=== PATIENT | female | born 1940 | race Caucasian/White ===

== ENCOUNTER 2023-09-26 11:50 | Day surgery (SDC) | payer MEDICARE, BC ==
[~2023-09-26 11:50] MED LIST: Cefuroxime 10 MG/ML SYRINGE EYERT SCH; Lidocaine 1% PF 2 ML SDV INJECT SCH; Pilocarpine 4% Ophth Soln 15 ML Bot EYERT SCH
[2023-09-26] MEDS: Polymyxin B/Trimethoprim 10 ML Bottle EYERT SCH ×3 (12:08→14:08)
[2023-09-26] MEDS: Brimonidine 0.2% Ophth Soln 5 ML Bottle EYERT SCH ×3 (12:13→14:08)
[2023-09-26] MEDS: Phenylephrine 2.5% Ophth Soln 2 ML Bot EYERT SCH ×5 (12:19→13:34)
[2023-09-26] MEDS: Tropicamide 1% Ophth Soln 3 ML Bottle EYERT SCH ×4 (12:24→13:07)
[2023-09-26] MEDS: Tetracaine HCl/PF 0.5% 4 ML Bottle EYEBOTH SCH ×4 (13:27→13:43)
[2023-09-26 14:26] VITALS: BP 181/85; PULSE 64
== END 2023-09-26 14:20 ==
LOC: JD.SDS 11:50
PROVIDERS: ATTEND Ophthalmology
DX: H25.811 Combined forms of age-related cataract, right eye (principal); I10 Essential (primary) hypertension; E78.2 Mixed hyperlipidemia; E03.9 Hypothyroidism, unspecified; Z96.1 Presence of intraocular lens; Z87.891 Personal history of nicotine dependence; Z79.890 Hormone replacement therapy; Z79.899 Other long term (current) drug therapy; Z88.8 Allergy status to other drugs, medicaments and biological substances
CPT/HCPCS: 66984; A9270; J0697; C1780; J3490